=== PATIENT | female | born 1940 | race Caucasian/White ===

== ENCOUNTER → 2016-07-17 | Outpatient (CLI) | payer OTHER, MEDICARE | LOC: MMPC 11:11 | PROVIDERS: ATTEND Nurse Practitioner | DX: J44.1 Chronic obstructive pulmonary disease with (acute) exacerbation (principal); Z99.81 Dependence on supplemental oxygen | CPT/HCPCS: 99214; G0463 ==

== ENCOUNTER → 2016-10-30 | Outpatient (CLI) | payer OTHER, MEDICARE | LOC: MMPC 11:11 | PROVIDERS: ATTEND Internal Medicine | DX: J44.9 Chronic obstructive pulmonary disease, unspecified (principal); H93.293 Other abnormal auditory perceptions, bilateral; M81.0 Age-related osteoporosis without current pathological fracture; K42.9 Umbilical hernia without obstruction or gangrene; J43.2 Centrilobular emphysema; E03.9 Hypothyroidism, unspecified | CPT/HCPCS: 99214; G0463 ==

== ENCOUNTER 2018-08-03 08:19 | Observation (INO) ==
[2018-08-03] MEDS ORDERED: Sodium Chloride 0.9% 1,000 ML PRIMARY IV ONE (09:08)
[2018-08-03 09:18] LABS: BASOPHILS # (AUTO) 0.02 10*3/UL; BASOPHILS % (AUTO) 0.3 % (0-1); EOSINOPHILS # (AUTO) 0.35 10*3/UL; EOSINOPHILS % (AUTO) 4.8 % (0-8); Hematocrit [HCT] 41.7 % (37.0-47.0); LYMPHOCYTES # (AUTO) 1.58 10*3/uL; MEAN CORPUSCULAR HEMOGLOBIN 31.3 PG (27-31); MEAN CORPUSCULAR VOLUME 87.1 FL (81-99); MEAN PLATELET VOLUME 10.5 FL (7.4-12.2); MONOCYTES # (AUTO) 0.72 10*3/UL (0.3-0.8); MONOCYTES % (AUTO) 9.8 % (5-15); NEUTROPHILS # (AUTO) 4.67 10*3/UL; NEUTROPHILS % (AUTO) 63.5 % (50-80); RED BLOOD COUNT 4.79 10^6/uL (4.20-5.40)
[2018-08-03 09:20] LABS: PLATELET MORPHOLOGY COMMENT NORMAL MORPHOLOGY (NORM); RBC MORPHOLOGY COMMENT NORMAL MORPHOLOGY (NORM); WBC MORPHOLOGY COMMENT NORMAL MORPHOLOGY (NORM)
[2018-08-03 09:23] LABS: BLOOD UREA NITROGEN 11 mg/dL (7-22); BUN/CREATININE RATIO 13.75 (6-20); SERUM ALBUMIN 4.3 g/dL (3.5-4.8)
--- NOTE | 2018-08-03 09:44 | EKG ---
[address] [place] [address] Measurements Intervals [place] Rate: 60 P: -55 HI: 166 QRS: -69 QRSD: 101 T: 44 QT: 422 QTc: 423 Interpretive Statements SINUS BRADYCARDIA LEFT ANTERIOR FASCICULAR BLOCK Compared to ECG 06/11/2018 11:06:01 Sinus Bradycardia, now present Sinus rhythm no longer present Electronically Signed On 08-03-18 13:47:20 MDT by Rajan Thompson [email or web address]
[2018-08-03] MEDS ORDERED: methylPREDNISolone Succ Inj 125 MG in Sodium Chloride 0.9% 50 ML IV ONE (10:09)
[2018-08-03] MEDS ORDERED: cefTRIAXone Inj 2 GM in Sodium Chloride 0.9% 100 ML IV ONE (10:43)
--- NOTE | 2018-08-03 10:52 | DI ---
AP CHEST X-RAY, 08/03/2018 9:10 AM : Clinical History: Dyspnea. Previous Exam: 07/28/2018. Comparison is also made with the CT scan of the chest with IV contrast from 07/28/2018. Soft Tissues: No acute soft tissue abnormality. Status post left mastectomy. Bones: Normal. No blastic or lytic bony metastases are seen. Heart: Normal heart. Aorta is tortuous. Lungs: No infiltrates. Minimal discoid atelectasis in the right costophrenic angle. Effusion(s): None. Mediastinum: Normal mediastinum. Nodules: No pulmonary nodules. Reading: Normal chest x-ray. There has been no significant interval change.
--- NOTE | 2018-08-03 10:58 | PDOC ---
Dyspnea HPI - General Chief Complaint: Dyspnea Stated Complaint: SOB/Dyspnea Date Seen by Provider: 08/03/18 Time Seen by Provider: 09:00 Source: POSITIVE: Patient, EMS Exam Limitations: POSITIVE: No limitations Treatment Prior to Arrival: REPORTS: Oxygen Nurse's Notes Reviewed & Considered: Yes EMS Report Reviewed & Considered: Verbal - History of Present Illness Initial Comments: The patient is a 77-year-old female who is brought to the emergency department by ambulance with complaints of increased shortness of breath. She has a history of COPD and is normally just on oxygen at night baseline. She was treated for COPD exacerbation in June through the emergency department with prednisone and Zithromax. She saw Dr. Abdi on July 28 with complaints of worsening shortness of breath. At that time she underwent workup which included chest x-ray and subsequent CT of the chest with contrast as well as blood work. Her blood work at that time was all unremarkable. The CT showed no evidence of PE with some infiltrate in the lung bases consistent with atelectasis versus pneumonia. She was treated with doxycycline at that time and advised to wear her oxygen all the time. Sputum culture from that day grew out a Neisseria species however sensitivities have not been done at this point. She reports that she really has not noticed any improvement since starting on the antibiotics. She has been using neb treatments at home which she states helps some. This morning she had done several neb treatments and was still feeling very short of breath. She subsequently called for an ambulance. When EMS arrived the patient met them at the front door. She was wearing oxygen tubing however the tubing was tied up in a not and not connected to an oxygen source. She was hypoxic and initially started on a nonrebreather which brought her sats up above 90. She was subsequently weaned down to 4 L which has been maintaining her sats in the low 90s. The patient denies any current headache, numbness or weakness in her arms or legs, chest pain. She states that her appetite has been poor. - Patient Home Medications Home Medications: Home Medications calcium carbonate-vitamin D3 600 mg (1,500 mg)-400 unit capsule 1 cap PO QDAY ea 05/01/17 cholecalciferol (vitamin D3) 2,000 unit capsule 2,000 unit PO QDAY #30 cap 05/01/17 fluticasone 500 mcg-salmeterol 50 mcg/dose blistr powdr for inhalation 1 inh INH BID #60 ea 05/01/17 hydrochlorothiazide 25 mg tablet 25 mg PO QDAY #90 tab 05/01/17 ejyysknnqewn-wthkijro-sunknx tablet 1 mcg PO QDAY tab 05/01/17 levothyroxine 75 mcg capsule 75 mcg PO QDAY #90 cap 08/07/17 albuterol sulfate HFA 90 mcg/actuation aerosol inhaler 1 inh INH Q6H PRN #18 g 09/15/17 potassium chloride ER 10 mEq tablet,extended release 10 meq PO TID #270 tab 09/15/17 rosuvastatin 40 mg tablet 40 mg PO QDAY #90 tab 02/05/18 albuterol sulfate 2.5 mg/3 mL (0.083 %) solution for nebulization 1.25 mg INH QID PRN #375 vial 06/08/18 Albuterol Neb Soln 0.083% 2.5 mg INHALATION Q4H PRN #1 box 06/11/18 albuterol sulfate HFA 90 mcg/actuation aerosol inhaler 2 puff INH Q4-6H PRN #18 g 07/02/18 amlodipine 5 mg tablet 5 mg PO QDAY #90 tab 07/29/18 doxycycline hyclate 100 mg tablet 100 mg PO BID #20 tab 07/29/18 - Patient Allergies Allergies/Adverse Reactions: Allergies Allergy/AdvReac Type Severity Reaction Status Date / Time No Known Allergies Allergy Verified 08/03/18 08:40 Past Medical History - heen HEENT History: Denies History Cardiovascular History: Hypertension, Hyperlipidemia Respiratory History: COPD, Pneumonia, Sleep Apnea, Home Oxygen Use Additional Respiratory History: PT REPORTS USES 3L AT NIGHT. PT CURRENTLY ON 2- 4L NC DUE TO RECENT PNEUMONIA DIAGNOSIS. Gastrointestinal History: Denies History Genitourinary History: Denies History Endocrine History: Hypothyroidism Musculoskeletal History: Osteoporosis Prosthesis or Implant: No Neurological History: Denies History Blood Disorders: Denies History Psychiatric History: Denies History History of Sexually Transmitted Diseases: No Cancer History: Breast Cancer Treatment / Date(s) of Treatment: 10/27/13 SENTINAL NODE BX AND MASECTOMY FOLLOWED BY RADIATION In Past Year Been Physically Harmed or Verbally Threatened: No History of MDRO: No History of Other Communicable Diseases: No Tobacco Use: Former Smoker Alcohol Use: None In the Past 12 Months, Have Used or Abuse Any Substance: None Previous Surgical History: Yes Type / Date of Surgery: CATARACT EXT LEFT / VIKTOR/ TORN RETINA BILATERAL EYE/ TONSILLECTOMY/ LEFT MASECTOMY Anesthesia Reactions: No Malignant Hyperthermia: No Significant Family History: Cancer, Lung disease Additional Family History: SISTERS HAD CANCER, SISTER WITH COPD. FATHER LUNG Past Medical History Reviewed: Reviewed - No Changes ROS - Limitations ROS Limitations: No Limitations Constitution: REPORTS: Weakness (Generalized weakness). DENIES: Chills, Fever Cardiovascular: DENIES: Chest Pain, Heart Racing Respiratory: REPORTS: Cough Non Productive, Shortness Of Breath, Wheezing. DENIES: Hurts To Breathe Neurological: DENIES: Headache, Numbness, Weakness (No focal weakness) Gastrointestinal: REPORTS: Denies GI Symptoms (Poor appetite). DENIES: Abdominal Pain, Vomitting, Diarrhea Musculoskeletal: REPORTS: Denies MS Symptoms Genitourinary: REPORTS: Denies Symptoms Eyes: REPORTS: Denies Symptoms ENT: REPORTS: Denies Symptoms Skin: DENIES: Rash Dyspnea Physical Exam - General Appearance General Appearance: REPORTS: Alert, Cooperative, No Acute Distress - HEENT HEENT: POSITIVE: Head Inspection Nml, Eyes Inspection Nml, Ears Inspection Nml, Nose Inspection Nml, Pharynx Inspect. Nml, Dry Mucous Membranes - Respiratory Respiratory: REPORTS: Other (Breath sounds are diminished, respirations are unlabored, no obvious wheezing or rhonchi at the time of initial exam) - Cardiovascular Cardiovascular: REPORTS: Regular Rate and Rhythm, Heart Sounds Normal Peripheral Pulses: Dorsalis-pedis (R): 2+, Dorsalis-pedis (L): 2+ - Abdomen Abdomen: Soft: (All Quadrants), Denies Tenderness: (All Quadrants), No Distention: (All Quadrants) - Skin Skin: REPORTS: Intact, No Rash - Extremities Extremity: Normal ROM: (All Extremities), Normal Inspection: (All Extremities) - Neurological / Psychological Neurological: POSITIVE: receiving checker Normal As Tested, Motor Normal, Sensation Normal, Other (No focal neurologic deficit) Dyspnea Progress - Results Reviewed by me Xrays/CTs/US Reviewed by me: Yes Discussed with Radiologist: Yes Radiology Findings: Chest x-ray is unremarkable per radiologist with no interval change from July 28. Lab Results Reviewed by Me: Yes CBC and BMP: 08/03/18 09:00 08/03/18 08:50 Lab Results:: Laboratory Results 08/03/18 08/03/18 08/03/18 08:50 08:50 09:00 WBC RBC Hgb Hct MCV MCH MCHC RDW Std Deviation RDW Coeff of Vickie Plt Count MPV Immature Gran % (Auto) Neut % (Auto) Lymph % (Auto) [place] % (Auto) Eos % (Auto) Baso % (Auto) Immature Gran # (Auto) Neut # (Auto) Lymph # (Auto) [place] # (Auto) Eos # (Auto) Baso # (Auto) WBC Morphology Comment Plt Morphology Comment RBC Morph Comment D-Dimer Sodium 125 L D Potassium 3.2 L Chloride 88 L Carbon Dioxide 28 Anion Gap 9 BUN 11 Creatinine 0.8 BUN/Creatinine Ratio 13.75 Glucose 111 H Calculated Osmolality 259.0 L Lactic Acid Calcium 9.5 Magnesium 1.8 Total Bilirubin 0.8 AST 29 ALT 22 Alkaline Phosphatase 107 Troponin I < 0.012 C-Reactive Protein 1.4 H NT-Pro-B Natriuret Pep 44.9 Total Protein 6.8 Albumin 4.3 Globulin 2.6 Albumin/Globulin Ratio 1.60 08/03/18 08/03/18 08/03/18 09:00 09:00 09:00 WBC 7.35 RBC 4.79 Hgb 15.0 Hct 41.7 MCV 87.1 MCH 31.3 H MCHC 36.0 RDW Std Deviation 39.4 RDW Coeff of Vickie 12.5 Plt Count 250 MPV 10.5 Immature Gran % (Auto) 0.1 Neut % (Auto) 63.5 Lymph % (Auto) 21.5 [place] % (Auto) 9.8 Eos % (Auto) 4.8 Baso % (Auto) 0.3 Immature Gran # (Auto) 0.01 Neut # (Auto) 4.67 Lymph # (Auto) 1.58 [place] # (Auto) 0.72 Eos # (Auto) 0.35 Baso # (Auto) 0.02 WBC Morphology Comment Normal morphology Plt Morphology Comment Normal morphology RBC Morph Comment Normal morphology D-Dimer 0.25 Sodium Potassium Chloride Carbon Dioxide Anion Gap BUN Creatinine BUN/Creatinine Ratio Glucose Calculated Osmolality Lactic Acid 0.8 Calcium Magnesium Total Bilirubin AST ALT Alkaline Phosphatase Troponin I C-Reactive Protein NT-Pro-B Natriuret Pep Total Protein Albumin Globulin Albumin/Globulin Ratio EKG Interpreted/Reviewed By Me:: Yes EKG Interpretation:: POSITIVE: Normal Sinus Rhythm, Normal Rate, Normal QRS, Normal ST/T - Patient's Progress MDM / ED Course: The patient's oxygen saturations are currently maintained at 4 L per nasal cannula. An IV was established and blood cultures, lactate and venous blood gas were obtained. EKG shows normal sinus rhythm with no acute ST segment or T-wave changes. Chest x-ray shows no acute findings per radiologist. Her blood work reveals a normal white blood count and her CRP is mildly elevated at 1.7, this was normal in June. Her d-dimer is normal, troponin and BNP are normal. Her sodium is 125 which is down from 136 on July 28. Her potassium is also low at 3.2. Kidney function and liver enzymes are unremarkable. The patient's clinical presentation is most consistent with COPD exacerbation with recent diagnosis of pneumonia on CT which is possibly undertreated. The patient also has become hyponatremic likely from poor oral intake. She did receive 1 L bolus of normal saline here in the emergency department. She also was given Solu- Medrol 125 mg IV and 2 g of Rocephin, 500 mg of Zithromax were ordered for t reatment of pneumonia. I did discuss these findings with the patient and recommended admission to the hospital for further treatment. Dr. Cota has agreed to admit the patient and the patient is in agreement with this plan. Patient Care Time - Estimated PCT Patient Care Time (In Minutes): 35 Vital Signs - Recent Vital Signs Vital Signs: Vital Signs (Last 8 hours) Temp Pulse Resp BP Pulse Ox 08/03/18 08:53 97.6 F 70 20 126/83 91 - VS Reviewed Vital Signs Reviewed: Yes Discharge Clinical Impression: Pneumonia, Hyponatremia, Hypokalemia, COPD exacerbation, Hypoxia Discharge Disposition: Admit to Inpatient Condition: Fair Follow Up With: SONIDO ABDI [Primary Care Provider] - Date Decision to Admit to Inpatient: 08/03/18 Time Decision to Admit to Inpatient: 10:45
--- NOTE | 2018-08-03 11:00 | PDOC ---
HPI - History of Present Illness History of Present Illness: Is a very nice 77-year-old female with past medical history of COPD and uses oxygen usually just at night. He was treated in the ER with prednisone and Zithromax in June for COPD exacerbation and on July [address] Brooks with doxycycline she was hypoxic and short of breath this morning and decided to be seen in the in the emergency room she was started on antibiotic steroids and a nonrebreather which improved her saturation and after some treatments her oxygen demand and down 4 L. 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 Surgical History: See above Tobacco Use: Former Smoker In the Past 12 Months, Have Used or Abuse Any of the Following Substance: None Medication / Allergies Home Medications: Home Medications Medication Instructions Recorded Confirmed Type calcium carbonate-vitamin D3 600 1 cap PO QDAY ea 05/01/17 08/03/18 History mg (1,500 mg)-400 unit capsule cholecalciferol (vitamin D3) 2,000 2,000 unit PO QDAY #30 cap 05/01/17 08/03/18 History unit capsule hydrochlorothiazide 25 mg tablet 25 mg PO QDAY #90 tab 05/01/17 08/03/18 Rx kwcwbduttfrp-bqxkknyx-npjzmm tablet 1 mcg PO QDAY tab 05/01/17 08/03/18 History levothyroxine 75 mcg capsule 75 mcg PO QDAY #90 cap 08/07/17 08/03/18 Rx albuterol sulfate HFA 90 1 inh INH Q6H PRN #18 g 09/15/17 08/03/18 Rx mcg/actuation aerosol inhaler rosuvastatin 40 mg tablet 40 mg PO QDAY #90 tab 02/05/18 08/03/18 Rx Albuterol Neb Soln 0.083% 2.5 mg INHALATION Q4H PRN #1 box 06/11/18 08/03/18 Rx albuterol sulfate HFA 90 2 puff INH Q4-6H PRN #18 g 07/02/18 08/03/18 Rx mcg/actuation aerosol inhaler amlodipine 5 mg tablet 5 mg PO QDAY #90 tab 07/29/18 08/03/18 Rx doxycycline hyclate 100 mg tablet 100 mg PO BID #20 tab 07/29/18 08/03/18 Rx Allergies/Adverse Reactions: Allergies Allergy/AdvReac Type Severity Reaction Status Date / Time No Known Allergies Allergy Verified 08/03/18 08:40 Review of Systems - Review of Systems All Systems: Reviewed & No Additional Complaints Except as Stated - Respiratory Respiratory: REPORTS: Cough - Cardiovascular Cardiovascular: DENIES: Negative System Review, Chest Pain, Edema, Syncope, Palpitations, Orthopnea, Paroxysmal Nocturnal Dyspnea, Other, See HPI - Gastrointestinal Gastrointestinal / Abdominal: DENIES: Negative System Review, Nausea, Vomiting, Diarrhea, Constipation, Abdominal Pain, Bloody Stool, Poor Appetite, Heartburn, Regurgitation, Bloating, Lactose Intolerance, Melena, Bright Red Blood per Rectum, Other, See HPI Exam - Vitals Vital Signs: Vital Signs Temperature 97.6 F Temperature Source Temporal Artery Scan Pulse Rate [Apical] 70 Respiratory Rate 20 Blood Pressure [Right Arm] 126/83 Pulse Ox 91 Oxygen Flow Rate 4 Oxygen Delivery Method Nasal Cannula Height 5 ft 6 in Weight 172 lb - General General Appearance: No Acute Distress, Cooperative - Respiratory Respiratory Exam: POSITIVE: Decreased Breath Sounds. NEGATIVE: Rales, Rhonci - Cardiovascular Cardiovascular Exam: POSITIVE: RRR, No Murmur, No Clicks, No Gallops, No Rubs, PMI Non-Displaced - GI/Abdominal GI/Abdominal Exam: POSITIVE: Normal Bowel Sounds, Non Tender, Non Distended, Soft, No Masses, No Hepatomegaly, No Splenomegaly, No Organomegaly - Extremities Extremities Exam: POSITIVE: No Clubbing Present, No Edema Present, No Cyanosis Present Results - Labs CBC and BMP: 08/03/18 09:00 08/03/18 08:50 Assessment and Plan - Patient Problems (1) COPD exacerbation Current Visit: Yes Status: Acute Comment: Steroids and IV antibiotics and nebs she was breathing at 32 times a minute when she came to the floor I therefore ordered a CT scan of her chest rule out PE and pneumonia Code(s): J44.1 - Chronic obstructive pulmonary disease with (acute) exacerbation (2) Hyponatremia Current Visit: Yes Status: Acute Comment: Secondary to patient on being on hydrochlorothiazide*normal saline at 75 an hour stop hydrochlorothiazide Code(s): E87.1 - Hypo-osmolality and hyponatremia (3) Hypokalemia Current Visit: Yes Status: Acute Comment: Place with fluids Code(s): E87.6 - Hypokalemia (4) Pneumonia Current Visit: No Status: Resolved Onset Date: 05/22/15 Comment: IV ceftriaxone and Zithromax
[2018-08-03 11:11] LABS: BILIRUBIN,URINE NEGATIVE (NEG); CLARITY,URINE CLEAR (CLEAR); COLOR,URINE YELLOW (Y); GLUCOSE, URINE (UA) NEGATIVE (NEG); OCCULT BLOOD,URINE NEGATIVE (NEG); PROTEIN,URINE NEGATIVE (NEG); UROBILINOGEN,URINE 0.2 EU/dL (0.2)
[2018-08-03 11:17] LABS: BACTERIA,URINE RARE; RBC,URINE RARE /hpf; RENAL EPITHELIAL CELLS,URINE FEW; SQUAMOUS EPITHELIAL CELL,UR RARE; URINE SAMPLE TYPE CLEAN CATCH URINE
[2018-08-03] MEDS ORDERED: ALBUTEROL SULFATE 2.5 MG/3 ML NEB PRN (11:32)
[2018-08-03 11:36] LABS: VENOUS PH 7.46 (7.32-7.42)
--- NOTE | 2018-08-03 14:29 | DI ---
CT ANGIOGRAM OF THE CHEST, 08/03/2018 12:36 PM : Clinical History: Hypoxia. Dyspnea. Tachypnea. Previous Exam: None at this facility. Technique: Scans from base of neck to lung bases with IV contrast. Bolus tracking protocol was used f or timing the injection. Non-MIPS and MIPS sagittal/coronal images generated. IV Contrast: 65 mL of Isovue 300. Base of Neck: Normal. Nodes: Right hilar adenopathy. Normal axillary, supraclavicular, mediastinal, and left hilar lymph no efrem. Heart: Normal. Calcifications are present in the proximal third of the LAD and the proximal portion o f the left circumflex artery. Aorta: Ectatic and tortuous without evidence of an aneurysm or dissection. Pulmonary Arteries: Normal. No pulmonary emboli or infarcts; no pulmonary hypertension. Mediastinum: Slight shift of the mediastinum and trachea to the right of midline. Lungs: There is complete collapse of the right lower lobe secondary to a suspected mass in the right bronchus just inferior to the bronchus intermedius. There is marked compensatory hyperinflation of th e right upper lobe and right middle lobe with displacement of the middle lobe posteriorly. There is a lso compensatory hyperinflation of the left lung. Effusion(s): None. Nodules: None. Bony Structures: Normal visualized portions of ribs, sternum, scapulae, clavicles, and shoulders. Nor mal visualized portions of thoracic spine. Limited Upper Abdomen: Normal adrenal glands and spleen. Normal limited views of liver and pancreas. READIN. Normal CTA of the chest. There are no pulmonary emboli or pulmonary infarcts. 2. There is complete collapse of the right lower lobe with compensatory hyperinflation of the right upper lobe and right middle lobe. The right middle lobe is displaced posteriorly, and there is compen satory hyperinflation of the left lung causing displacement of the mediastinum slightly to the right of midline. This appearance is similar to the previous study of 07/28/2018, although the suspected manny or mass in the right lower lobe bronchus is less apparent due to the projection.
[2018-08-03] MEDS ORDERED: Potassium Chloride Tab 10 MEQ TAB PO SCH (15:00)
--- NOTE | 2018-08-03 15:57 | DCSUMMARY ---
Hospitalization Summary Hospital Course: Final Discharge Diagnosis: Current Visit Problems Problem Status Onset Code COPD exacerbation Acute J44.1 Hyponatremia Acute E87.1 Hypokalemia Acute E87.6 Pneumonia Acute J18.9 Hyponatremia Acute E87.1 Hypokalemia Acute E87.6 COPD exacerbation Acute J44.1 Hypoxia Acute R09.02 Bronchial mass Diagnostic Data, Laboratory Data, and Procedures of Signifigance: Laboratory Results 08/03/18 08/03/18 08/03/18 08:50 08:50 09:00 WBC RBC Hgb Hct MCV MCH MCHC RDW Std Deviation RDW Coeff of Vickie Plt Count MPV Immature Gran % (Auto) Neut % (Auto) Lymph % (Auto) [place] % (Auto) Eos % (Auto) Baso % (Auto) Immature Gran # (Auto) Neut # (Auto) Lymph # (Auto) [place] # (Auto) Eos # (Auto) Baso # (Auto) WBC Morphology Comment Plt Morphology Comment RBC Morph Comment D-Dimer VBG pH VBG pCO2 VBG HCO3 VBG Base Excess Sodium 125 L D Potassium 3.2 L Chloride 88 L Carbon Dioxide 28 Anion Gap 9 BUN 11 Creatinine 0.8 BUN/Creatinine Ratio 13.75 Glucose 111 H Calculated Osmolality 259.0 L Lactic Acid Calcium 9.5 Magnesium 1.8 Total Bilirubin 0.8 AST 29 ALT 22 Alkaline Phosphatase 107 Troponin I < 0.012 C-Reactive Protein 1.4 H NT-Pro-B Natriuret Pep 44.9 Total Protein 6.8 Albumin 4.3 Globulin 2.6 Albumin/Globulin Ratio 1.60 Ur Collection Type Urine Color Urine Clarity Urine pH Ur Specific [place] Urine Protein Urine Glucose (UA) Urine Ketones Urine Occult Blood Urine Nitrate Urine Bilirubin Urine Urobilinogen Ur Leukocyte Esterase Urine RBC Urine WBC Ur Squamous Epith Cells Ur Renal Epithelial Cell Urine Crystals Urine Bacteria Urine Casts Urine Mucus Urine Trichomonas Urine Yeast Ur Culture Indicated? 08/03/18 08/03/18 08/03/18 09:00 09:00 09:00 WBC 7.35 RBC 4.79 Hgb 15.0 Hct 41.7 MCV 87.1 MCH 31.3 H MCHC 36.0 RDW Std Deviation 39.4 RDW Coeff of Vickie 12.5 Plt Count 250 MPV 10.5 Immature Gran % (Auto) 0.1 Neut % (Auto) 63.5 Lymph % (Auto) 21.5 [place] % (Auto) 9.8 Eos % (Auto) 4.8 Baso % (Auto) 0.3 Immature Gran # (Auto) 0.01 Neut # (Auto) 4.67 Lymph # (Auto) 1.58 [place] # (Auto) 0.72 Eos # (Auto) 0.35 Baso # (Auto) 0.02 WBC Morphology Comment Normal morphology Plt Morphology Comment Normal morphology RBC Morph Comment Normal morphology D-Dimer 0.25 VBG pH VBG pCO2 VBG HCO3 VBG Base Excess Sodium Potassium Chloride Carbon Dioxide Anion Gap BUN Creatinine BUN/Creatinine Ratio Glucose Calculated Osmolality Lactic Acid 0.8 Calcium Magnesium Total Bilirubin AST ALT Alkaline Phosphatase Troponin I C-Reactive Protein NT-Pro-B Natriuret Pep Total Protein Albumin Globulin Albumin/Globulin Ratio Ur Collection Type Urine Color Urine Clarity Urine pH Ur Specific [place] Urine Protein Urine Glucose (UA) Urine Ketones Urine Occult Blood Urine Nitrate Urine Bilirubin Urine Urobilinogen Ur Leukocyte Esterase Urine RBC Urine WBC Ur Squamous Epith Cells Ur Renal Epithelial Cell Urine Crystals Urine Bacteria Urine Casts Urine Mucus Urine Trichomonas Urine Yeast Ur Culture Indicated? 08/03/18 08/03/18 09:24 10:58 WBC RBC Hgb Hct MCV MCH MCHC RDW Std Deviation RDW Coeff of Vickie Plt Count MPV Immature Gran % (Auto) Neut % (Auto) Lymph % (Auto) [place] % (Auto) Eos % (Auto) Baso % (Auto) Immature Gran # (Auto) Neut # (Auto) Lymph # (Auto) [place] # (Auto) Eos # (Auto) Baso # (Auto) WBC Morphology Comment Plt Morphology Comment RBC Morph Comment D-Dimer VBG pH 7.46 H VBG pCO2 40 L VBG HCO3 28 H VBG Base Excess 5 H Sodium Potassium Chloride Carbon Dioxide Anion Gap BUN Creatinine BUN/Creatinine Ratio Glucose Calculated Osmolality Lactic Acid Calcium Magnesium Total Bilirubin AST ALT Alkaline Phosphatase Troponin I C-Reactive Protein NT-Pro-B Natriuret Pep Total Protein Albumin Globulin Albumin/Globulin Ratio Ur Collection Type Clean catch urine Urine Color Yellow Urine Clarity Clear Urine pH 7.0 Ur Specific [place] 1.010 Urine Protein Negative Urine Glucose (UA) Negative Urine Ketones Negative Urine Occult Blood Negative Urine Nitrate Negative Urine Bilirubin Negative Urine Urobilinogen 0.2 Ur Leukocyte Esterase Trace Urine RBC Rare Urine WBC 2-4 Ur Squamous Epith Cells Rare Ur Renal Epithelial Cell Few Urine Crystals None Urine Bacteria Rare Urine Casts None Urine Mucus None Urine Trichomonas None Urine Yeast None Ur Culture Indicated? Culture not set History and Physical pertinent to Admission: This very nice 77-year-old female who was treated for COPD exacerbation and p neumonia a few weeks ago and before that in the ER last week she also had a CT scan of her chest which she did not show we found today due to projection. After I admitted her I repeated a CAT scan of her chest which showed complete collapse of the right lower lobe with compensatory hyperinflation of the right upper lobe and middle lobe causing displacement of the mediastinum to the right of the midline with the most likely suspected tumor mass in the right lower lobe bronchus I discussed the case with the family and patient is unable to even the step out of bed without getting shortness of breath I don't have any interventional radiology here for diagnoses patient's family requested to be transferred to [facility] for further workup of this right lower lobe bronchus mass I discussed the case in detail with Dr. Guadarrama which accepted the patient also he spoke with pulmonology to consult Course of Hospitalization: On the date of discharge, the patient was examined: Gen.: No acute distress, alert, nontoxic Heart: Regular rate and rhythm, no murmurs, clicks, gallops, or rubs Lungs: Clear to auscultation bilaterally, breathing is nonlabored Abdomen/GI: Normal tones on auscultation, soft, nontender, nondistended Musculoskeletal/extremities: No clubbing, cyanosis, or edema Vitals reviewed and are listed below Vital Signs (24 hrs) 08/03/18 08:53 08/03/18 11:32 08/03/18 11:35 Temperature 97.6 F 97.0 F Pulse Rate Pulse Rate [Apical] 70 89 88 Pulse Rate [Pulse Oximeter] Respiratory Rate 20 34 H 34 H Blood Pressure [Right Arm] 126/83 123/57 Pulse Ox 91 94 08/03/18 12:35 08/03/18 16:10 08/03/18 16:11 Temperature 96.8 F Pulse Rate 82 85 Pulse Rate [Apical] Pulse Rate [Pulse Oximeter] 58 L Respiratory Rate 12 22 22 Blood Pressure [Right Arm] 120/57 Pulse Ox 95 93 100 Assessment and Plan: 1. As per discharge assessments above 2. Disposition: [facility] 3. Condition on discharge, stable and improved. 4. Diet: regular diet 5. Activities: resume normal activities 6. Follow-Up: 1. PCP 2. 7. Medications at the Time of Discharge: Active Medications Generic Name Dose Route Start Last Admin Trade Name Freq PRN Reason Stop Dose Admin Albuterol Sulfate 2.5 mg 08/03/18 11:32 Albuterol Neb Soln 0.083% NEB RTQ4H PRN Wheezing Amlodipine Besylate 5 mg 08/04/18 09:00 Norvasc PO DAILY JENNIFER Ceftriaxone Sodium 2 gm/ 100 mls @ 200 mls/hr 08/04/18 11:30 Sodium Chloride IV Q24H JENNIFER Potassium Chloride/Sodium Chloride 1,000 mls @ 75 mls/hr 08/03/18 11:32 08/03/18 13:49 Pot Chl 20meq + Ns PRIMARY IV 75 mls/hr .[id number] JENNIFER Administration Azithromycin 500 mg/ Sodium 250 mls @ 250 mls/hr 08/03/18 14:00 08/03/18 14:39 Chloride IV 250 mls/hr Q24H JENNIFER Administration Levothyroxine Sodium 75 mcg 08/04/18 05:30 Synthroid PO DAILY@0530 JENNIFER Potassium Chloride 10 meq 08/03/18 15:00 Klor-Con PO TID JENNIFER Rosuvastatin Calcium 40 mg 08/03/18 21:00 Crestor PO BEDTIME JENNIFER 8. Time, care, counseling and coordination of care for this discharge is greater than 30 minutes. Patient: Kathryn Fournier : 1940 Sex: F Age: 77 Exam Name: CT CTA Chest Non-Coronary [facility] Exam Date: 08/03/18 Report # : [id number] CPT Code: 88314 EMR/MR #: [id number] Ordering: TAMRA ALVES Admiting: TAMRA ALVES MD. Primary: Glynn Humphries MD Attending: TAMRA ALVES MD. Signed CT ANGIOGRAM OF THE CHEST, 08/03/2018 12:36 PM : Clinical History: Hypoxia. Dyspnea. Tachypnea. Previous Exam: None at this facility. Technique: Scans from base of neck to lung bases with IV contrast. Bolus tracking protocol was used for timing the injection. Non-MIPS and MIPS sagittal /coronal images generated. IV Contrast: 65 mL of Isovue 300. Base of Neck: Normal. Nodes: Right hilar adenopathy. Normal axillary, supraclavicular, mediastinal, and left hilar lymph nodes. Heart: Normal. Calcifications are present in the proximal third of the LAD and the proximal portion of the left circumflex artery. Aorta: Ectatic and tortuous without evidence of an aneurysm or dissection. Pulmonary Arteries: Normal. No pulmonary emboli or infarcts; no pulmonary hypertension. Mediastinum: Slight shift of the mediastinum and trachea to the right of midline. Lungs: There is complete collapse of the right lower lobe secondary to a suspected mass in the right bronchus just inferior to the bronchus intermedius. There is marked compensatory hyperinflation of the right upper lobe and right middle lobe with displacement of the middle lobe posteriorly. There is also compensatory hyperinflation of the left lung. Effusion(s): None. Nodules: None. Bony Structures: Normal visualized portions of ribs, sternum, scapulae, clavicles, and shoulders. Normal visualized portions of thoracic spine. Limited Upper Abdomen: Normal adrenal glands and spleen. Normal limited views of liver and pancreas. READIN. Normal CTA of the chest. There are no pulmonary emboli or pulmonary infarcts. 2. There is complete collapse of the right lower lobe with compensatory hyperinflation of the right upper lobe and right middle lobe. The right middle lobe is displaced posteriorly, and there is compensatory hyperinflation of the left lung causing displacement of the mediastinum slightly to the right of mi dline. This appearance is similar to the previous study of 07/28/2018, although the suspected tumor mass in the right lower lobe bronchus is less apparent due to the projection. Dictated By: 08/03/18 1413 SHENA VELIZ MD. Signed By: 08/03/18 1429 SHENA VELIZ MD. Exam - Vitals Vital Signs: Vital Signs Temperature 96.8 F Temperature Source Temporal Artery Scan Pulse Rate [Pulse Oximeter] 58 Pulse Rate [Apical] 88 Respiratory Rate 12 Blood Pressure [Right Arm] 120/57 Pulse Ox 95 Oxygen Flow Rate 5 Oxygen Delivery Method Nasal Cannula Height 5 ft 6 in Weight 171 lb 3.2 oz Patient Problems - Patient Problem List (1) COPD exacerbation Current Visit: Yes Status: Acute Code(s): J44.1 - Chronic obstructive pulmonary disease with (acute) exacerbation Category: Medical (2) Hyponatremia Current Visit: Yes Status: Acute Code(s): E87.1 - Hypo-osmolality and hyponatremia Category: Medical (3) Hypokalemia Current Visit: Yes Status: Acute Code(s): E87.6 - Hypokalemia Category: Medical (4) Pneumonia Current Visit: No Status: Resolved Onset Date: 05/22/15 Category: Medical
[2018-08-03 16:55] VITALS: BP 116/68; RESP 16; TEMP 98.1; O2SAT 91
[2018-08-03] MEDS ORDERED: Rosuvastatin Tab 20 MG TAB PO SCH (21:00)
[2018-08-03] MEDS ORDERED: FLUTICASONE/SALMETEROL 500/50 UD INHALER INH SCH (21:00)
[2018-08-04] MEDS ORDERED: LEVOTHYROXINE 75 MCG TABLET PO SCH (05:30)
[2018-08-04] MEDS ORDERED: AmLODIPine Tab 5 MG TABLET PO SCH (09:00)
[2018-08-04] MEDS ORDERED: cefTRIAXone Inj 2 GM in Sodium Chloride 0.9% 100 ML IV SCH (11:30)
== END 2018-08-03 17:58 | disposition short-term general hospital (02) ==
LOC: ER 08:19 → MED/SURG 08:19
PROVIDERS: ADMIT Internal Medicine; ATTEND Internal Medicine

== ENCOUNTER 2018-08-11 18:29 | Inpatient (IN) ==
[2018-08-11] MEDS ORDERED: IPRATROPIUM/ALBUTEROL SULFATE 3 ML NEB NEB ONE (19:01)
[2018-08-11] MEDS ORDERED: Sodium Chloride 0.9% 1,000 ML PRIMARY IV ONE (19:01)
[2018-08-11] MEDS ORDERED: LORazepam 2 MG/1 ML VIAL IVP ONE (19:03)
[2018-08-11 19:09] LABS: BASOPHILS # (AUTO) 0.03 10*3/UL; BASOPHILS % (AUTO) 0.4 % (0-1); EOSINOPHILS # (AUTO) 0.17 10*3/UL; EOSINOPHILS % (AUTO) 2.4 % (0-8); Hemoglobin [HGB] 13.9 g/dL (12.0-16.0); LYMPHOCYTES # (AUTO) 2.24 10*3/uL; MEAN CORPUSCULAR HEMOGLOBIN 31.8 PG (27-31); MEAN CORPUSCULAR HGB CONC 35.6 g/dL (33-37); MEAN CORPUSCULAR VOLUME 89.2 FL (81-99); MEAN PLATELET VOLUME 9.6 FL (7.4-12.2); MONOCYTES # (AUTO) 0.69 10*3/UL (0.3-0.8); MONOCYTES % (AUTO) 9.9 % (5-15); NEUTROPHILS # (AUTO) 3.81 10*3/UL; NEUTROPHILS % (AUTO) 54.8 % (50-80); RED BLOOD COUNT 4.37 10^6/uL (4.20-5.40)
[2018-08-11 19:13] LABS: PLATELET MORPHOLOGY COMMENT NORMAL MORPHOLOGY (NORM); RBC MORPHOLOGY COMMENT NORMAL MORPHOLOGY (NORM); WBC MORPHOLOGY COMMENT NORMAL MORPHOLOGY (NORM)
[2018-08-11 19:21] LABS: BLOOD UREA NITROGEN 14 mg/dL (7-22); SERUM ALBUMIN 4.2 g/dL (3.5-4.8)
--- NOTE | 2018-08-11 19:28 | EKG ---
[address] [place] [address] Measurements Intervals [place] Rate: 61 P: 22 UT: 222 QRS: -73 QRSD: 101 T: 48 QT: 399 QTc: 401 Interpretive Statements SINUS RHYTHM WITH FIRST DEGREE AV BLOCK LEFT ANTERIOR FASICULAR BL Compared to ECG 08/03/2018 09:44:40 First degree AV block now present Sinus bradycardia no longer present Left anterior fascicular block still present Electronically Signed On 08-12-18 08:59:01 MDT by Rajan Thompson [email or web address]
--- NOTE | 2018-08-11 19:32 | DI ---
AP CHEST X-RAY, 08/11/2018 7:02 PM : Clinical History: Dyspnea. Previous Exam: 08/03/2018. Soft Tissues: No acute soft tissue abnormality. Bones: Normal. Heart: Cardiomegaly without CHF. Lungs: No infiltrates. Effusion(s): None. Mediastinum: Normal mediastinum. Nodules: No pulmonary nodules. Readin. No acute infiltrate or effusion. 2. Cardiomegaly without CHF.
--- NOTE | 2018-08-11 20:03 | DI ---
CT HEAD SCAN WITHOUT IV CONTRAST, 08/11/2018 7:04 PM : Clinical History: Confusion. Previous Exam: None at this facility. Technique: Performed from the foramen magnum to vertex without IV contrast. Contrast Volume: None. 4th Ventricle: Normal. 3rd Ventricle: Moderately dilated. Lateral Ventricles: Moderately dilated. Sella: Normal size and normal pituitary gland. Cerebrum: Normal. No acute hemorrhagic or bland infarct. No evidence of significant small vessel isch emic disease. Cerebellum: Normal. No acute hemorrhagic or bland infarct. No cerebellopontine angle mass. Normal cer ebellar tonsillar position. Brainstem: Normal. Atrophy: Severe cerebellar and cerebral atrophy Extracerebral Mantles/Midline Shift: No extracerebral mantle or dural lesion. No midline shift. Sinuses: 12 mm mucous retention cyst or polyp in the floor of the right maxillary sinus. Skull: Intact. READIN. No acute hemorrhagic or bland infarct. No significant small vessel ischemic disease. 2. Severe cerebellar and cerebral atrophy.
--- NOTE | 2018-08-11 21:28 | DI ---
EXAM: CT Angiography Chest Without And With Intravenous Contrast CLINICAL HISTORY: ITS.REASON SOB Physician Notes: Tech Comments: TECHNIQUE: Axial computed tomographic angiography images of the chest without and with intravenous contrast using pulmonary embolism protocol. MIP reconstructed images were created and reviewed. COMPARISON: No relevant prior studies available. FINDINGS: Pulmonary arteries: Unremarkable. No pulmonary embolism. Aorta: No suspicious findings. No thoracic aortic aneurysm. Lungs: Emphysema. No infiltrate. No mass. Pleural space: Unremarkable. No significant effusion. No pneumothorax. Heart: Unremarkable. No cardiomegaly. No significant pericardial effusion. No evidence of RV dysfunction. Bones/joints: No acute fracture. No dislocation. Soft tissues: Unremarkable. Lymph nodes: Unremarkable. No enlarged lymph nodes. IMPRESSION: No acute findings. <MYCVCSECTION> Critical Value Communications 08/11/18 22:33 Call From [facility] Dr. Reyes on 08/11 22:32 (-06:00)
[2018-08-11 21:51] LABS: BILIRUBIN,URINE NEGATIVE (NEG); CLARITY,URINE CLEAR (CLEAR); COLOR,URINE YELLOW (Y); GLUCOSE, URINE (UA) NEGATIVE (NEG); OCCULT BLOOD,URINE NEGATIVE (NEG); PH,URINE 7.5 (5.0-8.5); PROTEIN,URINE NEGATIVE (NEG); UROBILINOGEN,URINE 0.2 EU/dL (0.2)
[2018-08-11 21:57] LABS: SQUAMOUS EPITHELIAL CELL,UR RARE; URINE SAMPLE TYPE CLEAN CATCH URINE
[2018-08-11] MEDS ORDERED: cefTRIAXone Inj 1 GM in Sodium Chloride 0.9% 100 ML IV ONE (22:10)
--- NOTE | 2018-08-11 22:45 | PDOC ---
HPI - History of Present Illness Date of Service: 08/11/18 Time of Service: 23:00 Chief Complaint: Cough and shortness of breath that started today History of Present Illness: This is a 77 years old female with medical history significant for history of hypertension, hypothyroidism, hyperlipidemia, COPD on oxygen who was admitted recently beginning of this month to the hospital and was transferred to [facility] because there was a collapse of the right lower lobe. Apparently she had bronchoscopy and that showed thick secretion there was no evidence of cancer. But there was a nodule/mass that need to be followed up by CT according to the daughter. The daughter did say that there was intermittent confusion on the day she presented to the hospital and also she was confused at [facility] at one point in time they had to restrain her. her confusion seemed to fluctuate. At least when she was discharged it improved. Today she started to cough and feel short of breath and she called her daughter, who brought her to the hospital and she noticed that also she is been confused. In the ER apparently she was tachypneic and she was given some Ativan and that seemed to help. She did have a CT which showed some atelectasis. She did receive antibiotic and was admitted. Her sodium was also low. She is on a diuretic. The daughter said that she's been noticing some memory issues and she is helping her more. 2 weeks ago apparently she took a week worth of blood pressure medication so now she is on pillbox arranged by her daughter.. Past Medical History Medical History: 1. Hypertension. 2. Hyperlipidemia. 3. Hypothyroidism. 4. History of COPD being on oxygen for about 6 weeks now. 5. 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 6. Right lower lobe pulmonary collapse in August 2018 was transferred to [facility] had bronchoscopy which was negative. Apparently there is still a mass and the recommendation from [facility] to repeat CT in 3 months. 7. History of osteoporosis Surgical History: 1. History of cholecystectomy. 2. History of left m astectomy 2004. 3. History of cataract surgery Pertinent Family History: Mother had dementia. Past Social History: Used to smoke, doesn't drink. No drugs. Lives at assisted living. Tobacco Use: Former Smoker In the Past 12 Months, Have Used or Abuse Any of the Following Substance: None Medication / Allergies Home Medications: Home Medications Medication Instructions Recorded Confirmed Type calcium carbonate-vitamin D3 600 1 cap PO QDAY ea 05/01/17 08/11/18 History mg (1,500 mg)-400 unit capsule cholecalciferol (vitamin D3) 2,000 2,000 unit PO QDAY #30 cap 05/01/17 08/11/18 History unit capsule hydrochlorothiazide 25 mg tablet 25 mg PO QDAY #90 tab 05/01/17 08/11/18 Rx kuslagogowjn-akxoikjz-jtzihz tablet 1 mcg PO QDAY tab 05/01/17 08/11/18 History levothyroxine 75 mcg capsule 75 mcg PO QDAY #90 cap 08/07/17 08/11/18 Rx rosuvastatin 40 mg tablet 40 mg PO QDAY #90 tab 02/05/18 08/11/18 Rx albuterol sulfate HFA 90 2 puff INH Q4-6H PRN #18 g 07/02/18 08/11/18 Rx mcg/actuation aerosol inhaler amlodipine 5 mg tablet 5 mg PO QDAY #90 tab 07/29/18 08/11/18 Rx Fluticasone/Vilanterol [Breo 1 inh INHALATION DAILY 08/11/18 08/11/18 History Ellipta 100-25 Mcg INH] albuterol sulfate 2.5 mg/3 mL 2.5 mg INHALATION Q4H PRN #1 box 08/11/18 08/11/18 Rx (0.083 %) solution for nebulization fluticasone 200 mcg-vilanterol 25 1 inh INH QDAY #28 ea 08/11/18 08/11/18 Rx mcg/dose powder for inhalation potassium chloride ER 10 mEq 10 meq PO QDAY 08/11/18 08/11/18 History capsule,extended release Allergies/Adverse Reactions: Allergies Allergy/AdvReac Type Severity Reaction Status Date / Time No Known Allergies Allergy Verified 08/11/18 18:45 Review of Systems - Review of Systems All Systems: Reviewed & No Additional Complaints Except as Stated Exam - Vitals Vital Signs: Vital Signs Pulse Rate 65 Respiratory Rate 16 Pulse Ox 94 - General General Appearance: No Acute Distress, Cooperative - Head Head Exam: Normal Inspection - Eye Eye Exam: POSITIVE: Normal Appearance - ENT ENT Exam: POSITIVE: Normal Exam - Neck Neck Exam: Normal Inspection - Respiratory Additional Respiratory Exam Details: There is decreased air entry but otherwise clear - Cardiovascular Cardiovascular Exam: POSITIVE: RRR - GI/Abdominal GI/Abdominal Exam: POSITIVE: Normal Bowel Sounds, Non Tender, Non Distended, Soft - Rectal Rectal Exam: POSITIVE: Deferred - External Exam: POSITIVE: Deferred - Extremities Extremities Exam: POSITIVE: Normal Inspection - Back Back Exam: POSITIVE: Normal Inspection - Neurological Neurological Exam: POSITIVE: Alert, CN II-XII Intact, No Facial Droop, Speech Intact / Clear, Moves All Extremities Equally Additional Neurological Exam Details: She knew the month, the year, the day she thought it was the seventh. She knows she is in the hospital. She seemed very appropriate. The daughter said this is what happened at [facility] where there was confusion noticed by the nursing staff but not by the physician. Results - Labs CBC and BMP: 08/11/18 18:50 08/12/18 04:30 - EKG Data -: EKG Interpreted by Me Rate: Normal EKG Shows Normal: Sinus Rhythm - EKG Data EKG Interpretation: Other (EKG shows normal sinus rhythm with first degree AV block. Left axis deviation. Incomplete right bundle branch block.) - Imaging Status: Report Reviewed by Me (CT head 1. No acute hemorrhagic or bland infarct. No significant small vessel ischemic disease. 2. Severe cerebellar and cerebral atrophy. Chest X ray 1. No acute infiltrate or effusion. 2. Cardiom egaly without CHF. CT chest There is peribronchial thickening at the right lung base with mild atelectasis. This has considerably improved since 08/03/18. No infiltrate) Assessment and Plan - Patient Problems (1) Confusion Current Visit: No Status: Acute Comment: This may be secondary to illness or maybe there is underlying dementia like lewy body dementia. I think will correct her electrolyte, she did receive antibiotics as there is either atelectasis or infiltrate. Will speak with radiology and see what they think about the x-ray findings tomorrow. Code(s): R41.0 - Disorientation, unspecified (2) Hyponatremia Current Visit: No Status: Acute Comment: Seem to be new which was present last time but not at the end of July. I think we'll DC her hydrochlorothiazide give some fluid and repeat her labs tomorrow. Code(s): E87.1 - Hypo-osmolality and hyponatremia (3) Hypokalemia Current Visit: No Status: Acute Comment: Replace potassium Code(s): E87.6 - Hypokalemia (4) Essential hypertension Current Visit: No Status: Chronic Comment: Continue same medication except will DC the HCTZ
[2018-08-11 23:02] LABS: VENOUS PH 7.56 (7.32-7.42)
[2018-08-11] MEDS ORDERED: ALBUTEROL SULFATE 8.5 GM HFA INHALER INH PRN (23:19)
[2018-08-11] MEDS ORDERED: ACETAMINOPHEN 325 MG TABLET PO PRN (23:21)
[2018-08-11] MEDS ORDERED: LIDOCAINE W/ SODIUM BICARB 0.5 ML SYR SUBD PRN (23:21)
[2018-08-11] MEDS ORDERED: ONDANSETRON 4 MG/2 ML VIAL IVP PRN (23:21)
[2018-08-11] MEDS ORDERED: CALCIUM CARBONATE 500 MG (TUMS) CHEWABLE TABLET PO PRN (23:21)
[2018-08-11] MEDS ORDERED: DOCUSATE 100 MG CAPSULE PO PRN (23:21)
--- NOTE | 2018-08-12 00:53 | PDOC ---
General Adult HPI - General Chief Complaint: Dyspnea Stated Complaint: short of breath, right lower lobe collapse Date Seen by Provider: 08/12/18 Time Seen by Provider: 19:25 Source: POSITIVE: Patient, Other (daughter) Exam Limitations: POSITIVE: No limitations Nurse's Notes Reviewed & Considered: Yes - History of Present Illness Initial Comment: The patient is a 77-year-old female who is brought to the emergency department by her daughter with complaints of increased shortness of breath. The patient was seen here in the emergency department on August 03 with increased shortness of breath. She was initially treated for pneumonia however on CT scan after admission she was found to have a collapse of the right lower lobe with an apparent mass. She was subsequently transferred to [place] where she was hospitalized. She underwent bronchoscopy and biopsy was taken. The patient's daughter reports that this was not a malignancy and was thought to be a thick mucous plug. She was told that there was no evidence of pneumonia and she was taken off of her antibiotics. She was discharged home and was actually doing very well for several days. She followed up with Dr. Humphries earlier today at which time she was feeling well. This evening however she is started to complain of increased shortness of breath and coughed up some phlegm which contained some darkish colored blood. Since then the patient's daughter reports that she seems to have increased confusion. She seems to be having trouble getting words out. The patient denies any headache, numbness or weakness in her arms or legs or chest pain. Patient's daughter does report that she had some pain in her left shoulder posteriorly prior to coming to the emergency department. Her daughter reports that she had weaned down to 2 L of oxygen. Here in the emergency department she required 3 L to maintain her oxygen saturations above 90. Have you received a tetanus shot in the past 10 years?: No - Patient Home Medications Home Medications: Home Medications calcium carbonate-vitamin D3 600 mg (1,500 mg)-400 unit capsule 1 cap PO QDAY ea 05/01/17 cholecalciferol (vitamin D3) 2,000 unit capsule 2,000 unit PO QDAY #30 cap 05/01/17 hydrochlorothiazide 25 mg tablet 25 mg PO QDAY #90 tab 05/01/17 pmadoqlqtrct-azqsxyya-pwlkxx tablet 1 mcg PO QDAY tab 05/01/17 levothyroxine 75 mcg capsule 75 mcg PO QDAY #90 cap 08/07/17 rosuvastatin 40 mg tablet 40 mg PO QDAY #90 tab 02/05/18 albuterol sulfate HFA 90 mcg/actuation aerosol inhaler 2 puff INH Q4-6H PRN #18 g 07/02/18 amlodipine 5 mg tablet 5 mg PO QDAY #90 tab 07/29/18 Fluticasone/Vilanterol [Breo Ellipta 100-25 Mcg INH] 1 inh INHALATION DAILY 08/11/18 albuterol sulfate 2.5 mg/3 mL (0.083 %) solution for nebulization 2.5 mg INHALATION Q4H PRN #1 box 08/11/18 fluticasone 200 mcg-vilanterol 25 mcg/dose powder for inhalation 1 inh INH QDAY #28 ea 08/11/18 potassium chloride ER 10 mEq capsule,extended release 10 meq PO QDAY 08/11/18 - Patient Allergies Allergies/Adverse Reactions: Allergies Allergy/AdvReac Type Severity Reaction Status Date / Time No Known Allergies Allergy Verified 08/11/18 18:45 Past Medical History - heen HEENT History: Denies History Cardiovascular History: Hypertension, Hyperlipidemia Respiratory History: COPD, Pneumonia, Home Oxygen Use Additional Respiratory History: PT REPORTS USES 3L AT NIGHT. PT CURRENTLY ON 2- 4L NC DUE TO RECENT PNEUMONIA DIAGNOSIS. Gastrointestinal History: Denies History Genitourinary History: Denies History Endocrine History: Hypothyroidism Musculoskeletal History: Osteoporosis Prosthesis or Implant: No Neurological History: Denies History Blood Disorders: Denies History Psychiatric History: Denies History History of Sexually Transmitted Diseases: No Cancer History: Breast Cancer Treatment / Date(s) of Treatment: 10/27/13 SENTINAL NODE BX AND MASECTOMY FOLLOWED BY RADIATION In Past Year Been Physically Harmed or Verbally Threatened: No History of MDRO: No History of Other Communicable Diseases: No Tobacco Use: Former Smoker Alcohol Use: None In the Past 12 Months, Have Used or Abuse Any Substance: None Previous Surgical History: Yes Type / Date of Surgery: CATARACT EXT LEFT / VIKTOR/ TORN RETINA BILATERAL EYE/ TONSILLECTOMY/ LEFT MASECTOMY Anesthesia Reactions: No Malignant Hyperthermia: No Significant Family History: Cancer, Lung disease Additional Family History: SISTERS HAD CANCER, SISTER WITH COPD. FATHER LUNG Past Medical History Reviewed: Reviewed - No Changes ROS - Limitations ROS Limitations: No Limitations Constitution: DENIES: Fever Cardiovascular: DENIES: Chest Pain, Heart Racing, Heart Palpitations Respiratory: REPORTS: Cough Productive, Shortness Of Breath Neurological: REPORTS: Confusion. DENIES: Headache, Numbness, Weakness Gastrointestinal: REPORTS: Denies GI Symptoms Musculoskeletal: REPORTS: Denies MS Symptoms Genitourinary: REPORTS: Denies Symptoms Eyes: REPORTS: Denies Symptoms ENT: REPORTS: Denies Symptoms Skin: DENIES: Rash General Adult Exam - General Appearance General Appearance: POSITIVE: Alert, Cooperative, Other (The patient is awake on arrival, she appears anxious and is hyperventilating) - HEENT HEENT: POSITIVE: Head Inspection Nml, Eyes Inspection Nml, Ears Inspection Nml, Nose Inspection Nml, Pharynx Inspect. Nml - Respiratory Respiratory: POSITIVE: Other (She does have rhonchi in the bases, she is tachypnea take and respirations are otherwise unlabored) - Cardiovascular Cardiovascular: POSITIVE: Regular Rate & Rhythm, No Murmur Peripheral Pulses: Dorsalis-pedis (R): 2+, Dorsalis-pedis (L): 2+ - Abdomen Abdomen: Soft: (All Quadrants), Denies Tenderness: (All Quadrants), No Guarding: (All Quadrants), No Rebound: (All Quadrants) - Skin Skin: POSITIVE: Normal Color, No Rash - Extremities Extremity: Normal ROM: (All Extremities), Normal Inspection: (All Extremities) - Neurological / Psychological Neurological: POSITIVE: Other (The patient is awake and she does answer questions in one or 2 word sentences, when she tries to speak longer sentences she seems to have trouble finding words, she has no obvious focal weakness or numbness in her extremities and cranial nerves appear to be intact) General Adult Progress - Results Reviewed by me Xrays/CTs/US Reviewed by me: Yes Discussed with Radiologist: Yes Radiology Findings: CT scan of the head shows no acute intracranial findings per radiologist, she does have significant cerebral and cerebellar atrophy. Initial chest x-ray shows no acute findings per radiologist. CT of the chest shows no evidence of PE and was reported as normal per radiologist. On review of the CAT scan from today as well as from August 03, there appears to be some atelectasis versus infiltrate in the right lower lobe today, the previously collapsed lobe of the right lower lung is no longer present on today's CT. Lab Results Reviewed by Me: Yes Lab Results:: Laboratory Results 08/11/18 08/11/18 08/11/18 18:50 18:50 18:50 WBC 6.96 RBC 4.37 Hgb 13.9 Hct 39.0 MCV 89.2 MCH 31.8 H MCHC 35.6 RDW Std Deviation 39.7 RDW Coeff of Vickie 12.4 Plt Count 285 MPV 9.6 Immature Gran % (Auto) 0.3 Neut % (Auto) 54.8 Lymph % (Auto) 32.2 Desha % (Auto) 9.9 Eos % (Auto) 2.4 Baso % (Auto) 0.4 Immature Gran # (Auto) 0.02 Neut # (Auto) 3.81 Lymph # (Auto) 2.24 Desha # (Auto) 0.69 Eos # (Auto) 0.17 Baso # (Auto) 0.03 WBC Morphology Comment Normal morphology Plt Morphology Comment Normal morphology RBC Morph Comment Normal morphology D-Dimer VBG pH VBG pCO2 VBG HCO3 VBG Base Excess Sodium Potassium Chloride Carbon Dioxide Anion Gap BUN Creatinine BUN/Creatinine Ratio Glucose Calculated Osmolality Lactic Acid Calcium Magnesium 2.0 Total Bilirubin AST ALT Alkaline Phosphatase Troponin I < 0.012 C-Reactive Protein < 0.5 NT-Pro-B Natriuret Pep 60.8 Total Protein Albumin Globulin Albumin/Globulin Ratio Ur Collection Type Urine Color Urine Clarity Urine pH Ur Specific [place] Urine Protein Urine Glucose (UA) Urine Ketones Urine Occult Blood Urine Nitrate Urine Bilirubin Urine Urobilinogen Ur Leukocyte Esterase Urine RBC Urine WBC Ur Squamous Epith Cells Ur Renal Epithelial Cell Urine Crystals Urine Bacteria Urine Casts Urine Mucus Urine Trichomonas Urine Yeast Ur Culture Indicated? 08/11/18 08/11/18 08/11/18 18:50 18:50 18:50 WBC RBC Hgb Hct MCV MCH MCHC RDW Std Deviation RDW Coeff of Vickie Plt Count MPV Immature Gran % (Auto) Neut % (Auto) Lymph % (Auto) Desha % (Auto) Eos % (Auto) Baso % (Auto) Immature Gran # (Auto) Neut # (Auto) Lymph # (Auto) Desha # (Auto) Eos # (Auto) Baso # (Auto) WBC Morphology Comment Plt Morphology Comment RBC Morph Comment D-Dimer 0.32 VBG pH VBG pCO2 VBG HCO3 VBG Base Excess Sodium 126 L Potassium 3.4 L Chloride 88 L Carbon Dioxide 25 Anion Gap 13 BUN 14 Creatinine 0.7 BUN/Creatinine Ratio 20.00 Glucose 90 Calculated Osmolality 262.0 L Lactic Acid 1.2 Calcium 9.3 Magnesium Total Bilirubin 0.6 AST 53 H ALT 10 Alkaline Phosphatase 73 Troponin I C-Reactive Protein NT-Pro-B Natriuret Pep Total Protein 6.9 Albumin 4.2 Globulin 2.7 Albumin/Globulin Ratio 1.50 Ur Collection Type Urine Color Urine Clarity Urine pH Ur Specific [place] Urine Protein Urine Glucose (UA) Urine Ketones Urine Occult Blood Urine Nitrate Urine Bilirubin Urine Urobilinogen Ur Leukocyte Esterase Urine RBC Urine WBC Ur Squamous Epith Cells Ur Renal Epithelial Cell Urine Crystals Urine Bacteria Urine Casts Urine Mucus Urine Trichomonas Urine Yeast Ur Culture Indicated? 08/11/18 08/11/18 19:14 21:45 WBC RBC Hgb Hct MCV MCH MCHC RDW Std Deviation RDW Coeff of Vickie Plt Count MPV Immature Gran % (Auto) Neut % (Auto) Lymph % (Auto) Desha % (Auto) Eos % (Auto) Baso % (Auto) Immature Gran # (Auto) Neut # (Auto) Lymph # (Auto) Desha # (Auto) Eos # (Auto) Baso # (Auto) WBC Morphology Comment Plt Morphology Comment RBC Morph Comment D-Dimer VBG pH 7.56 H VBG pCO2 28 L VBG HCO3 26 VBG Base Excess 3 H Sodium Potassium Chloride Carbon Dioxide Anion Gap BUN Creatinine BUN/Creatinine Ratio Glucose Calculated Osmolality Lactic Acid Calcium Magnesium Total Bilirubin AST ALT Alkaline Phosphatase Troponin I C-Reactive Protein NT-Pro-B Natriuret Pep Total Protein Albumin Globulin Albumin/Globulin Ratio Ur Collection Type Clean catch urine Urine Color Yellow Urine Clarity Clear Urine pH 7.5 Ur Specific [place] 1.010 Urine Protein Negative Urine Glucose (UA) Negative Urine Ketones Negative Urine Occult Blood Negative Urine Nitrate Negative Urine Bilirubin Negative Urine Urobilinogen 0.2 Ur Leukocyte Esterase Small Urine RBC None Urine WBC 1-3 Ur Squamous Epith Cells Rare Ur Renal Epithelial Cell None Urine Crystals None Urine Bacteria None Urine Casts None Urine Mucus None Urine Trichomonas None Urine Yeast None Ur Culture Indicated? Culture not set CBC and BMP: 08/11/18 18:50 08/11/18 18:50 EKG Interpretation:: POSITIVE: Normal Sinus Rhythm, Normal Rate, Normal QRS, Normal ST/T - Patient's Progress MDM / ED Course: The patient did require an increase in her oxygen from 2 L to 3 L to maintain her sats above 90%. An IV was established, blood cultures and lactate/venous blood gas were drawn with initial IV start. Her initial venous blood gas shows a pH of 7.58 with PCO2 of 23. White her white count and lactate were unremarkable. Troponin is normal. BNP is mildly elevated. D-dimer is normal. Chest x-ray shows no acute findings per radiologist. CT scan of her head shows marked cerebral and cerebellar atrophy with no acute findings per radiologist. CT of the chest shows no PE, the radiologist read the study is normal however there appears to be infiltrate versus atelectasis in the right lower lobe. The patient does have increased shortness of breath and cough productive of blood- tinged sputum. This may represent an early pneumonia and decision was made to go ahead and treat along these lines. She did receive Rocephin and Zithromax IV. In addition the patient has some increased confusion and difficulty finding words in longer sentences. She does not exhibit any other focal neurologic de ficits. This may be related to hyperventilation an acute illness exacerbating some underlying dementia which the patient likely has. The patient's daughter states that while she was hospitalized in [place] she became very confused several times and did not even recognize her on several occasions. Current findings and recommendations were discussed with the patient and her daughter. Dr. Reyes has agreed to accept the patient for further care. - Consult Counseled: POSITIVE: Patient, Family, RE: Lab Results, RE: Radiology Results, RE: DX Patient Care Time - Estimated PCT Patient Care Time (In Minutes): 50 Vital Signs - Recent Vital Signs Vital Signs: Vital Signs (Last 8 hours) Temp Pulse Pulse Resp BP Pulse Ox 08/11/18 19:49 65 16 94 08/11/18 19:48 62 16 95 08/11/18 19:20 97.4 F 70 28 H 146/90 94 - VS Reviewed Vital Signs Reviewed: Yes Discharge Clinical Impression: Hypoxia, Word finding difficulty, Cerebral atrophy Pneumonia Qualifiers: Pneumonia type: due to unspecified organism Laterality: right Lung location: lower lobe of lung Qualified Code(s): J18.9 - Pneumonia, unspecified organism Discharge Disposition: Admit to Inpatient Condition: Fair Date Decision to Admit to Inpatient: 08/11/18 Time Decision to Admit to Inpatient: 23:00
[2018-08-12 04:26] VITALS: RESP 20
[2018-08-12] MEDS: LEVOTHYROXINE 75 MCG TABLET PO SCH ×2 (04:29→09:43)
[2018-08-12 04:51] LABS: BLOOD UREA NITROGEN 9 mg/dL (7-22); BUN/CREATININE RATIO 12.85 (6-20)
--- NOTE | 2018-08-12 07:53 | PDOC(PROG) ---
Date of Service: 08/12/18 Time of Service: 08:00 Interval History: Subjective She feels better today. No significant cough today. She is denying shortness of breath today. No other symptoms. Objective : Data - Labs CBC and BMP: 08/11/18 18:50 08/12/18 04:30 Objective : Exam - General General Appearance: No Acute Distress, Cooperative - Head Head Exam: Normal Inspection - Eye Eye Exam: Normal Appearance - ENT ENT Exam: Normal Exam - Neck Neck Exam: Normal Inspection - Respiratory Respiratory Exam: Clear to Auscultation - Bilaterally - Cardiovascular Cardiovascular Exam: RRR - GI/Abdominal GI/Abdominal Exam: Normal Bowel Sounds, Non Tender, Non Distended, Soft, No Organomegaly - Rectal Rectal Exam: Deferred - External Exam: Deferred Exam: Deferred - Extremities Extremities Exam: Normal Inspection - Back Back Exam: Normal Inspection - Neurological Neurological Exam: Alert, Oriented x 3, CN II-XII Intact, No Facial Droop, Speech Intact / Clear, Moves All Extremities Equally - Psychiatric Psychiatric Exam: Normal Affect Assessment and Plan - Patient Problems (1) Confusion Current Visit: No Status: Acute Comment: Seems to be resolved. Unclear whether this is related to the recent illness causing delirium or to the hyponatremia or there is underlying dementia like lewy dementia with fluctuation in cognition. I did tell the daughter time will tell. For now I think since the sodium and potassium improves will DC her IV fluids and watch her another night in the hospital. if Things stable be home tomorrow. I did get the discharge summary from [facility] [place] and they mentioned the presence of a mass in the right lung which was not described on this CT so will speak with the radiologist to review the CT. Code(s): R41.0 - Disorientation, unspecified (2) Hyponatremia Current Visit: No Status: Acute Comment: Seem to be improved will DC the IV fluid. We DC'd the diuretic. Code(s): E87.1 - Hypo-osmolality and hyponatremia (3) Hypokalemia Current Visit: No Status: Acute Comment: Improved. Code(s): E87.6 - Hypokalemia (4) Essential hypertension Current Visit: No Status: Chronic Comment: Same medication except DC the diuretic.
[2018-08-12] MEDS ORDERED: FLUTICASONE Inhalation SCH (09:00)
[2018-08-12] MEDS ORDERED: VILANTEROL Inhalation SCH (09:00)
[2018-08-12] MEDS: Rosuvastatin Tab 20 MG TAB PO SCH (09:42)
[2018-08-12] MEDS: CHOLECALCIFEROL 1000 IU TABLET PO SCH (09:42)
[2018-08-12] MEDS: Potassium Chloride Tab 10 MEQ TAB PO SCH (09:43)
[2018-08-12] MEDS: Calcium/Vit D 600mg/400u Tab 1 TAB TABLET PO SCH (09:43)
[2018-08-12] MEDS: AmLODIPine Tab 5 MG TABLET PO SCH (09:43)
[2018-08-12] MEDS: FLUTICASONE Inhalation SCH (11:02)
[2018-08-12] MEDS: VILANTEROL Inhalation SCH (11:02)
--- NOTE | 2018-08-12 14:59 | OTI REPORT ---
Thank you for the referral of Kathryn Fournier. She was seen on 08/12/18 for an occupational therapy inpatient evaluation secondary to weakness. SUBJECTIVE: The patient is a 77-year-old female who is being seen secondary to being brought in by her family. She recently was hospitalized at the [facility]. Her daughter reports she has noticed her mom having increased difficulty caring for herself. She had taken a whole week's worth of her blood pressure medication in one day. She was slightly combative at the [facility] and her daughter reports she has never seen her mother that way before. The patient lives in the [facility]. 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 She reports that she showers independently, dresses herself independently, goes to the [facility] for her meals, and sometimes cooks for herself. The patient's daughter reports that she hasn't used the stove or oven for quite some time, but that is a concern that she has. The daughter has noticed a big decline with her mom, especially cognitively. She does have a lot of concerns with her mom being by herself throughout the day. The daughter has had to go over morning and night over the past week to help her manage her medications. She is also having more difficulty with her finances. PAST MEDICAL HISTORY: Past medical history can be found in the patient's medical record. OBJECTIVE FINDINGS: General observations: The patient was sitting in chair upon the therapist's arrival. Range of motion: Upper extremity active range of motion is within functional limits for shoulder, elbow, and wrist range of motion. Strength: Strength is 4/5 for shoulder flexion/abduction, 4+/5 for elbow flexion/extension, and 4/5 for wrist flexion/extension. Activities of daily living: The patient was able to don and doff her socks independently. Transfers: The patient requires contact guard assist with functional transfers for balance. Cognition: The patient was assessed with the [place] Cognitive Assessment (MoCA) and the results are as follows: Visuospatial/Executive: 1/5 -- She had difficulty following the number/letter sequence and had difficulty drawing a clock. She put the time 11:10 as a 10 after the 12 and the small hand to the 11. Namin/3 Attention: 0/6 -- She had difficulty repeating numbers forward and backward and with subtraction tasks. Language: 1/3 -- She had difficulty repeating sentences and was only able to think of two words that began with the letter F in one minute. Abstraction: 0/2 Delayed recall: 0/5 Orientation: 4/6 She had a combined score of 9/30 which places her in the SEVERE cognitive impairment range. ASSESSMENT: Secondary to the patient's severe cognitive impairment, it would be highly beneficial for her to continue with the Cognitive Performance Test this afternoon to assess her processing abilities. The therapist had a long discussion with the patient's daughter about getting her more care for home, possibly even 24-hour care. At this time her daughter reports that she does pretty well with cleaning her apartment on her own; she states she keeps it immaculate, but she has noticed a big decline with her medication management and financial quantitative analyst and if anything is out of the ordinary, she does not do well with her processing abilities. The patient may be more appropriate for an assisted living type facility; however, the patient is starting to wander more, which could possibly qualify her for the memory care unit at assisted living or getting more care in her apartment. Short-Term Goals: To be met by discharge from inpatient: Patient will participate in the Cognitive Performance Test. Patient will be able to follow two step commands independently. Patient will be able to complete a shower independently. Patient will be able to obtain clothes safely by reaching low and high. Patient will be able to dress self independently. Patient will be able to complete all functional transfers independently. Patient will be alert and oriented x3. Long-Term Goals: To be met following discharge from inpatient: Patient will be discharged with more assistance to improve safety at home. TREATMENT PLAN: Patient will be seen B.I.D during the week and one time per day over the weekend as an inpatient to address the above goals and objectives. INITIAL TREATMENT: Treatment today consisted of the initial evaluation. JAY
--- NOTE | 2018-08-12 16:38 | PT.PROG ---
Progress Note Progress Note: S. Patient stated that she would go to the therapy gym. O. Patient ambulated 175 feet to the therapy gym where she used the nu-step x 3 minutes, then ambulated 175 feet back to her room where she was left in her chair with alarm and call light. A. Patient veers to the right during ambulation, She was confused about what she was supposed to be doing, and was very tired after working with OT. She would continue to benefit from strengthening and safety at this time. P. Continue POC.
[2018-08-13 04:37] LABS: BLOOD UREA NITROGEN 10 mg/dL (7-22); BUN/CREATININE RATIO 14.28 (6-20)
[2018-08-13] MEDS: LEVOTHYROXINE 75 MCG TABLET PO SCH (05:02)
[2018-08-13] MEDS: VILANTEROL Inhalation SCH (06:16)
[2018-08-13] MEDS: FLUTICASONE Inhalation SCH (06:16)
--- NOTE | 2018-08-13 08:17 | DCSUMMARY ---
Hospitalization Summary Admit Date: 08/11/2018 Discharge Date: 08/13/18 Hospital Course: Discharge diagnoses 1. Confusion likely secondary to underlying dementia, either Alzheimer versus Lewy body dementia 2. Hyponatremia resolved 3. Hypokalemia resolved 4. History of hypertension 5. History of hyperlipidemia 6. Hypothyroidism 7. Recent right lower lobe pulmonary collapse had bronchoscopy and lavage at [facility], seemed to be resolved now 8. History of infiltrating ductal carcinoma of the left breast status post left mastectomy in 2004 9. COPD on oxygen Hospital course This is a 77 years old female medical history significant for history of hypertension, hypothyroidism, hyperlipidemia, COPD on oxygen who was admitted the beginning of this month to the hospital and was transferred to [facility] as there was collapse of the right lower lobe. She had bronchoscopy with lavage they found thick secretions. Apparently it was negative for cancer. The daughter reported that the patient had intermittent confusion on the day she presented to the hospital the first time and also she was confused and agitated at [facility]. Confusion seemed to be fluctuating. At least when they discharge her home it seemed to be improved. On the day she presented to our hospital she started to cough and she was short of breath and was brought to the hospital. The daughter also reported confusion. When she came into the ER apparently she was tachypneic and she was given Ativan and that helped calming her down. A CT of the chest showed some atelectasis. Patient apparently is on a diuretic. Her sodium was low when she came in at 126. So the patient was admitted to the hospital was put her on some IV fluid we DC the hydrochlorothiazide as I think it played part in the hyponatremia. The daughter did report memory issues that's been progressive so there may be an underlying dementia. she had a cognitive evaluation and she scored in the severe range based on the MOCA test. Recommendation was 24-hour observation. That was relayed to the daughter and the plan is to provide more supervision. She said she will stay with her mom post discharge and they will arrange for help. Did discuss with her the finding of the assessment would indicate dementia. Not clear whether this is Lewy body or Alzheimer. But the fact that there was some fluctuation and some hallucination suggest maybe this is Lewy body dementia. Discussed with her starting medication she agreed to start Aricept. I wrote a prescription starting dose need to be followed up with her primary and see if an increased dosage is warranted. Did order a B12 level. CT of the head did show evidence of cerebellar and cerebral atrophy. The cough that she had resolved. I did ask the radiologist to review the CT that she had here and he also reviewed the CT that she had at [facility]. The last CT that she had at [facility] still show the right lower lobe collapse after the bronchoscopy at this time seem to be resolved. Though the discharge summary from [facility] talks about a lingular mass he did not find a mass. But I think given the recommendation from [facility] to repeat The CT in 3 months probably would stick with that recommendation. Discharge instruction Diet regular Activity as tolerated Medications Current Medication(s) Medication Instructions Recorded Confirmed Type calcium carbonate-vitamin D3 600 1 cap PO QDAY ea 05/01/17 08/11/18 History mg (1,500 mg)-400 unit capsule cholecalciferol (vitamin D3) 2,000 2,000 unit PO QDAY #30 cap 05/01/17 08/11/18 History unit capsule mnlzzesorbuc-bvuxvlgx-suogcl tablet 1 mcg PO QDAY tab 05/01/17 08/11/18 History levothyroxine 75 mcg capsule 75 mcg PO QDAY #90 cap 08/07/17 08/11/18 Rx rosuvastatin 40 mg tablet 40 mg PO QDAY #90 tab 02/05/18 08/11/18 Rx albuterol sulfate HFA 90 2 puff INH Q4-6H PRN #18 g 07/02/18 08/11/18 Rx mcg/actuation aerosol inhaler amlodipine 5 mg tablet 5 mg PO QDAY #90 tab 07/29/18 08/11/18 Rx Fluticasone/Vilanterol [Breo 1 inh INHALATION DAILY 08/11/18 08/11/18 History Ellipta 100-25 Mcg INH] albuterol sulfate 2.5 mg/3 mL 2.5 mg INHALATION Q4H PRN #1 box 08/11/18 08/11/18 Rx (0.083 %) solution for nebulization fluticasone 200 mcg-vilanterol 25 1 inh INH QDAY #28 ea 08/11/18 08/11/18 Rx mcg/dose powder for inhalation Donepezil HCl [Aricept] 5 mg PO QHS #30 tablet 08/13/18 Rx Follow-up with PCP in 1-2 weeks Condition at discharge was stable for discharge Exam - Vitals Vital Signs: Vital Signs Temperature 98.3 F Temperature Source Temporal Artery Scan Pulse Rate [Pulse Oximeter] 65 Pulse Rate 52 Respiratory Rate 20 Blood Pressure [Right Arm] 114/60 Pulse Ox 97 Oxygen Flow Rate 3 Oxygen Delivery Method Nasal Cannula Height 5 ft 6 in Weight 167 lb 8 oz - General General Appearance: No Acute Distress, Cooperative - Head Head Exam: Normal Inspection - Eye Eye Exam: POSITIVE: Normal Appearance - ENT ENT Exam: POSITIVE: Normal Exam - Neck Neck Exam: Normal Inspection - Respiratory Respiratory Exam: POSITIVE: Clear to Auscultation - Bilaterally - Cardiovascular Cardiovascular Exam: POSITIVE: RRR - GI/Abdominal GI/Abdominal Exam: POSITIVE: Normal Bowel Sounds, Non Tender, Non Distended, Soft, No Organomegaly - Rectal Rectal Exam: POSITIVE: Deferred - External Exam: POSITIVE: Deferred - Extremities Extremities Exam: POSITIVE: Normal Inspection - Back Back Exam: POSITIVE: Normal Inspection - Neurological Neurological Exam: POSITIVE: Alert, CN II-XII Intact, No Facial Droop, Speech Intact / Clear, Moves All Extremities Equally - Psychiatric Psychiatric Exam: POSITIVE: Normal Affect Patient Problems - Patient Problem List (1) Confusion Current Visit: No Status: Acute Code(s): R41.0 - Disorientation, unspecified Category: Medical (2) Hyponatremia Current Visit: No Status: Acute Code(s): E87.1 - Hypo-osmolality and hyponatremia Category: Medical (3) Hypokalemia Current Visit: No Status: Acute Code(s): E87.6 - Hypokalemia Category: Medical (4) Essential hypertension Current Visit: No Status: Chronic Category: Medical
[2018-08-13] MEDS: Calcium/Vit D 600mg/400u Tab 1 TAB TABLET PO SCH (08:32)
[2018-08-13] MEDS: AmLODIPine Tab 5 MG TABLET PO SCH (08:32)
[2018-08-13] MEDS: CHOLECALCIFEROL 1000 IU TABLET PO SCH (08:32)
[2018-08-13] MEDS: Potassium Chloride Tab 10 MEQ TAB PO SCH (08:32)
[2018-08-13] MEDS: Rosuvastatin Tab 20 MG TAB PO SCH (08:32)
[2018-08-13 09:14] VITALS: BP 105/52; TEMP 97.3
[2018-08-13 11:29] VITALS: O2SAT 96
--- NOTE | 2018-08-13 11:51 | PTI REPORT ---
Thank you for the referral of Kathryn Fournier. She was seen on 08/12/18 for an inpatient evaluation secondary to weakness. SUBJECTIVE: The patient is a 77-year-old female who was brought to the hospital by her daughter secondary to a cough and shortness of breath. The patient states that she is doing better since being hospitalized and reports that she has not been coughing as much this morning and has been able to catch her breath. According to her daughter, the patient has been having some fluctuating confusion and she was also hospitalized at the beginning of this month secondary to a collapsed right lower lobe of her lung. The patient states that she lives here in [facility] at the [facility]. She states that she lives alone there and is independent with her ADLs. The patient reports that she does not use any assistive device for ambulation and denies any recent falls. 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 Per her daughter's report, she has not volunteered at the [facility] in a little over a year. Her daughter has started to help with medication management due to the patient's confusion. They state the patient was recently placed on oxygen which has been at 3 liters, but it was titrated down to 2 liters during her last hospital stay and she was doing relatively well after being discharged from the hospital. The patient has had the oxygen for approximately six weeks now. PAST MEDICAL HISTORY: Past medical history can be found in the patient's medical record. OBJECTIVE FINDINGS: General observations: The patient is alert and oriented to setting upon PT arrival. The patient is able to provide most of her subjective information but there is some discrepancies once the information was verified with her daughter. The patient was sitting up in her chair on three liters of oxygen. Her oxygen saturation is at 95%. Strength: Manual muscle test was performed in a seated position. The patient demonstrates 4+/5 bilateral lower extremity strength. Transfers: A gait belt was placed around the patient and she was able to perform a sit to stand transfer with contact guard assist x1 for safety. The patient demonstrated fair initial standing balance and was able to stand x1 minute but did require hand hold assist at times onto the walker due to unsteadiness. The patient performed a stand to seated transfer with stand by assist x1 for safety. Ambulation: The patient ambulated x150 feet with contact guard assist x1 for safety. We did not use an assistive device as the patient normally does not use one. She did have a tendency at times to veer toward the right side but did not have loss of balance with ambulating. ASSESSMENT: The patient has fair rehab potential secondary to her age and past medical history. We need to determine if the patient will be safe to return back to living in her apartment by herself due to her confusion or whether it would be more appropriate for a different living situation. Problem List: Decreased endurance Decreased activity tolerance Generalized weakness due to past hospital stays Short-Term Goals: To be met by discharge from inpatient: Patient will be able to transfer from bed to stand safely and independently. Patient will be able to ambulate at least 150 feet safely and independently. Patient will be able to tolerate 30 minutes of physical therapy activity to improve her overall endurance and strength. Long-Term Goals: To be met following discharge from inpatient: Patient may be seen by outpatient physical therapy if deemed necessary upon time of discharge. TREATMENT PLAN: Patient will be seen B.I.D during the week and one time per day over the weekend as an inpatient to address the above goals and objectives. INITIAL TREATMENT: Treatment today consisted of the initial evaluation. Following treatment the patient was left with OT for them to complete their evaluation. JAY
--- NOTE | 2018-08-13 12:05 | PT.PROG ---
Progress Note Progress Note: S. Patient agreed to go to the therapy gym this morning. O. patient ambulated 175 feet to the therapy gym where she used the nu-step x 5 minutes then performed seated exercises in the form of; long arc quads, marches, heel toe raises, ball squeezes, clam shells, resisted knee flexion all x 10 bilaterally sit to stands x 5. Patient then ascended and descended 11 stairs then ambulated 175 feet back to her room where she was left with alarm and call light. A. Patient tolerated therapy fair, she continues to be confused however was able to complete all exercises with no pain or problems. Patient would benefit from 24 hour care. P. Patient has met all goals at this time.
--- NOTE | 2018-08-13 12:13 | OT PM DAY ---
Diagnosis : Weakness PM - Occupational Therapy S: Today we are going to be administering the Cognitive Performance Test. The patient reports that she continues to do her laundry. Some of the subjective part of the functional history can be found in the patient's initial evaluation. The patient reports that she does go shopping sometimes with her daughter. She reports that she doesn't have much free time because she continually goes to the [facility] to help in the kitchen; however, per her daughter's report she has not done that in over a year. O: The patient performed the Cognitive Performance Test and the results are as follows: Med box: 3.5/6.0 -- With initial directions, the patient stated twice "Now put all in together?" She was wanting to put all of the pills from the pill box into the Friday slot. When asked to put one pill in on each day of the week, she was able to follow that instruction after two cues. For the second pill, which was PRN, she put in one pill on every evening. When asked what PRN meant, the patient stated "This is what I did." The third medication, which was supposed to be taking two medications every other day, the patient put one pill in every slot of the evening pill box. She was not able to correct with cues. The fourth was to be putting two pills in twice daily. She did put two pills in the morning pill box but was not able to correct with cues. The patient stated "I guess if they are going to take them, they will just take them." Shoppin.0/6.0 -- The patient looked at the gloves several times. She looked in the wallet a couple of times. She had difficulty finding the change. With two different cues she handed the therapist the wrong amount of money with the gloves. She needed a lot of cueing in order to find the money and to pay with the correct amount of dollars. She still had difficulty making the correct amount of change. Washin.0/5.0 -- The patient needed cues to find the sink and cues to get the soap out of the box. She needed specific cues to take the soap to wash her hands. She was not able to understand what to do with the task on the initial directive. [place]: 3.0/5.0 -- The patient did find the plug in; however, she got very impatient and popped the toast up one time and put the toast back down into the toaster. She had difficulty waiting for the toast the second time and wanted to pop the toast up. She was getting close to burning her hand so the therapist had to pop the toast up for her. She then proceeded to put butter and jam on the toast. This was a safety issue as she was going to put her fingers over the hot part of the toaster. Phone: 4.0/6.0 -- The patient was given a phone book. She was not able to alphabetize effectively. She continually turned page by page. She needed cues to find the Hs and did not find the H for the hardware store. The therapist had to give the number to the patient. It took her a little bit to look at the number but she was able to dial the number. She did ask the appropriate question. A: The patient scored 3.7 on the Cognitive Performance Test. This places her in the 24-hour care group. If we were to average the 3.7 between the 3.6 to the 3.8 level, 24-hour care is still recommended with supervision to max assist, depending on the novelty of the situation. In these processing levels, typically a patient with her score will be able to do routine simple tasks okay but does need assistance with any new type of task, will require 2-3 times longer than average to complete simple routine tasks, and may need monitors and alarms if she wanders, which her daughter did report that she does. She would need assistance and to have anything under lock and cruz that may be harmful to her, such as things that could burn or poison her. She would need training and single step actions over time if there was anything new. She does need assistance with finances, medication, nutrition, and hydration compliance. It is recommended that she be escorted to and from new locations. The therapist did discuss these recommendations with the patient and her daughter. Her daughter was given worksheets in regards to the Jose Cognitive Levels and the levels that her mom scored in between. She is going to think about some more 24-hour care type options for her mom. P: Continue seeing patient BID during the week and one time per day over the weekend until discharge. JAY
--- NOTE | 2018-08-14 14:32 | OT AM DAY ---
Diagnosis : Weakness AM - Occupational Therapy S: The patient reports that she may be going home. The doctor, the digital sales planner, and the patient's daughter stated after the session the patient will be going home, but the daughter is going to be providing 24-hour type care for her and will be looking into other options for care at home. O: Today the patient was able to complete a toilet transfer with contact guard assist. The patient completed toilet hygiene independently. The patient stood at sink with stand by assist. The patient ambulated down to therapy with contact guard assist. She completed the UBE x2 minutes forward and 2 minutes backward with a two minute rest break in between, red theraband resisted horizontal abduction, biceps curls, internal/external rotation, triceps, and adduction, power web, and digi-flex. A: The patient is making progress physically. Cognitively there are still a lot of concerns. Throughout the session today the patient would say random thoughts that didn't necessarily correlate with what she was doing. The patient was able to follow one step commands today. P: Continue seeing patient BID during the week and one time per day over the weekend for upper extremity strengthening, ADLs, and overall functional mobility. MTDD
== END 2018-08-13 12:46 | disposition home or self-care (01) | DRG 948 ==
LOC: ER 18:29 → MED/SURG 22:15
PROVIDERS: ADMIT Internal Medicine; ATTEND Internal Medicine